=== PATIENT | male | born 1945 | race Caucasian/White ===

== ENCOUNTER 2017-03-19 17:04 | Inpatient (IN) | payer OTHER ==
[~2017-03-19] VITALS: Ht 160 cm; Wt 55.8 kg
--- NOTE | 2017-03-19 17:10 | NUR ---
CALLED FOR TRIAGE, PT IN RESTROOM ATTEMPTING TO HAVE A BM
[2017-03-19 17:25] VITALS: BP_SYST 150
--- NOTE | 2017-03-19 17:25 | NUR ---
Patient triaged and placed in waiting room. VSS and patient appears in no acute distress at this time. Accompanied by , awaiting available bed, and MD notified of need for MSE.
[2017-03-19 17:51] LABS: BASOPHILS % (AUTO) 0.4 % (0.0-2.0); EOSINOPHILS # (AUTO) 0.1 K/uL (0.0-0.4); EOSINOPHILS % (AUTO) 1.4 % (0.0-4.0); HEMATOCRIT 34.8 % (36-54); HEMOGLOBIN 12.2 g/dL (14.0-18.0); LYMPHOCYTES % (AUTO) 13.8 % (20.5-51.5); MEAN CORPUSCULAR HEMOGLOBIN 36 pg (27-31); MEAN CORPUSCULAR HGB CONC 35 % (32-36); MEAN CORPUSCULAR VOLUME 104 fL (79.0-98.0); MONOCYTES # (AUTO) 0.6 K/uL (0.0-1.0); MONOCYTES % (AUTO) 7.9 % (1.7-9.3); NEUTROPHILS # (AUTO) 5.7 K/uL (1.8-7.7); NEUTROPHILS % (AUTO) 76.5 % (40.0-70.0); PLATELET COUNT (AUTO) 281 K/uL (130-430); RED BLOOD CELL COUNT(AUTO) 3.36 MIL/uL (4.2-6.2); RED CELL DISTRIBUTION WIDTH 12.7 % (9.0-15.0); WHITE BLOOD COUNT (AUTO) 7.4 K/uL (4.8-10.8)
[2017-03-19 18:01] LABS: ANION GAP 6 (5-15); CALCIUM 9.2 mg/dL (8.4-11.0); CREATININE 0.89 mg/dL (0.55-1.30); GLUCOSE 110 mg/dL (70-99); POTASSIUM 4.1 mmol/L (3.5-5.1); UREA NITROGEN, BLOOD 9 mg/dL (8-21)
[2017-03-19 18:05] LABS: ALANINE AMINOTRANSFERASE 15 U/L (12-78); ALBUMIN 3.8 g/dL (3.4-4.8); ASPARTATE AMINOTRANSFERASE 16 U/L (10-37); LIPASE 184 U/L (73-393); TOTAL BILIRUBIN 0.4 mg/dL (0.0-1.0); TOTAL PROTEIN, SERUM 7.7 g/dL (6.4-8.3)
[2017-03-19 18:10] LABS: CHLORIDE 83 mmol/L (98-107); SODIUM SERUM 116 mmol/L (136-145)
[2017-03-19 18:15] LABS: PROTHROMBIN TIME 10.5 SECS (9.5-12.5)
[2017-03-19] MEDS ORDERED: NACL 0.9% 1,000 ML IV ONE (18:15)
--- NOTE | 2017-03-19 18:30 | NUR ---
Patient to ER bed 02 to gown for evaluation. Side rails up.
--- NOTE | 2017-03-19 18:32 | NUR ---
Dr Nair at bedside examining patient
--- NOTE | 2017-03-19 18:32 | NUR ---
'Pt brought by self, A&Ox4, pt c/o constipation, states large BM 10 days ago and small BM yesterday, abd pain 3/10, skin pink and warm, cap refill <3, ambulatory, denies bleeding, VS WNL.
[2017-03-19] MEDS ORDERED: LOSA100T11 PO (19:37)
[2017-03-19] MEDS ORDERED: HYDR12.55 PO (19:37)
--- NOTE | 2017-03-19 19:38 | NUR ---
Patient unable to provide urine "states i need more time, i am trying" Refuses I&O catheter at this time.
--- NOTE | 2017-03-19 19:38 | NUR ---
Medication reconciliation completed with information provided by - pill bottles from patient. Any prior medication reconciliation on file was reviewed and corrected.
--- NOTE | 2017-03-19 19:45 | NUR ---
Patient does not meet SEPSIS protocol.
--- NOTE | 2017-03-19 20:55 | NUR ---
Patient will be admitted to care of Dr Ulrich. Admitted to MS unit. Will go to room 135. Belongings list completed. Summary report printed. Report will be given at bedside.
[2017-03-19] MEDS ORDERED: ACETAMINOPHEN 325 MG TABLET PO PRN (21:00)
[2017-03-19] MEDS ORDERED: ALBUTEROL SULFATE 0.083% 2.5 MG/3 ML VIAL.NEB INH PRN (21:00)
[2017-03-19] MEDS ORDERED: BISACODYL 5 MG TABLET.DR (DULCOLAX) PO ONE (21:00)
[2017-03-19] MEDS ORDERED: cloNIDine HCL 0.1 MG TABLET PO PRN (21:15)
--- NOTE | 2017-03-19 21:16 | NUR ---
Admission Note Received patient from ER with diagnosis of HYPONATREMIA, COLITIS. Initial Plan of Care discussed-patient verbalized understanding. Family at bedside. Oriented to room, call light, pain management and safety.
--- NOTE | 2017-03-19 21:16 | NUR ---
initial nursing notes: Patient is awake. Patient has IV fluid infusing on the left forearm IV access. Patient denies of having pain.
--- NOTE | 2017-03-19 23:16 | NUR ---
nursing rounds: Patient asleep in bed. Patient has no shortness of breath.
[2017-03-20] MEDS: NACL 0.9% 1,000 ML IV SCH ×3 (00:17→20:00)
[2017-03-20 00:51] LABS: BILIRUBIN,URINE NEGATIVE (NEGATIVE); BLOOD, URINE NEGATIVE (NEGATIVE); CLARITY/URINE CLEAR (CLEAR); COLOR,URINE YELLOW (YELLOW); GLUCOSE,URINE NEGATIVE (NEGATIVE); KETONES,URINE NEGATIVE (NEGATIVE); LEUKOCYTE ESTERASE ,URINE NEGATIVE (NEGATIVE); NITRITE, URINE NEGATIVE (NEGATIVE); PROTEIN URINE NEGATIVE (NEGATIVE); UROBILINOGEN,URINE 0.2 (0.2-1.0)
--- NOTE | 2017-03-20 01:15 | NUR ---
nursing rounds: Patient asleep. Kept siderails up X 3 and bed alarm on for patient's safety.
--- NOTE | 2017-03-20 03:15 | NUR ---
nursing rounds: Patient uses urinal. Patient voided clear yellow urine output.
[2017-03-20 04:00] VITALS: BP_SYST 100
--- NOTE | 2017-03-20 05:15 | NUR ---
nursing rounds: Patient calmly resting in bed. Call light within patient's reach.
[2017-03-20 07:37] LABS: ANION GAP 7 (5-15); CALCIUM 8.8 mg/dL (8.4-11.0); CHLORIDE 90 mmol/L (98-107); CREATININE 0.72 mg/dL (0.55-1.30); GLUCOSE 91 mg/dL (70-99); POTASSIUM 3.8 mmol/L (3.5-5.1); SODIUM SERUM 124 mmol/L (136-145); UREA NITROGEN, BLOOD 6 mg/dL (8-21)
[2017-03-20 07:40] LABS: BASOPHILS % (AUTO) 0.3 % (0.0-2.0); EOSINOPHILS # (AUTO) 0.1 K/uL (0.0-0.4); EOSINOPHILS % (AUTO) 1.8 % (0.0-4.0); HEMATOCRIT 34.4 % (36-54); HEMOGLOBIN 11.7 g/dL (14.0-18.0); LYMPHOCYTES % (AUTO) 16.5 % (20.5-51.5); MEAN CORPUSCULAR HEMOGLOBIN 37 pg (27-31); MEAN CORPUSCULAR HGB CONC 34 % (32-36); MEAN CORPUSCULAR VOLUME 107 fL (79.0-98.0); MONOCYTES # (AUTO) 0.7 K/uL (0.0-1.0); MONOCYTES % (AUTO) 11.7 % (1.7-9.3); NEUTROPHILS # (AUTO) 4.3 K/uL (1.8-7.7); NEUTROPHILS % (AUTO) 69.7 % (40.0-70.0); PLATELET COUNT (AUTO) 242 K/uL (130-430); RED BLOOD CELL COUNT(AUTO) 3.21 MIL/uL (4.2-6.2); RED CELL DISTRIBUTION WIDTH 12.8 % (9.0-15.0); WHITE BLOOD COUNT (AUTO) 6.1 K/uL (4.8-10.8)
--- NOTE | 2017-03-20 07:44 | NUR ---
closing nursing notes: Patient is awake, alert and oriented X 4. Patient is in no acute respiratory distress. No episodes of fall and no injuries throughout the welder 2nd shift. Provided nursing report to incoming morning shift nurses, MEL Nunes, at patient's bedside.
[2017-03-20 08:00] VITALS: BP_SYST 122
--- NOTE | 2017-03-20 08:00 | NUR ---
INITIAL NOTE PT AWAKE, ALERT AND ORIENTED X4, NO S/S OF DISTRESS OR PAIN, VSS, FAMILY AT BEDSIDE, IV TO LFA PATENT AND INFUSING PRESCRIBED FLUIDS AT ORDERED RATE, NO S/S OF INFILTRATION NOTED, PLAN OF CARE DISCUSSED WITH PATIENT, PATIENT VERBALIZED UNDERSTANDING, PT REORIENTED TO USE OF CALL LIGHT AND IT IS PLACED WITHIN REACH, SAFETY MEASURES IN PLACE, WILL FOLLOW UP
[2017-03-20] MEDS: ENOXAPARIN SODIUM 40 MG/0.4 ML SYRINGE SUBCUT SCH (09:12)
[2017-03-20] MEDS: LOSARTAN POTASSIUM 50 MG TABLET (COZAAR) PO SCH (09:12)
[2017-03-20] MEDS ORDERED: BISACODYL 5 MG TABLET.DR (DULCOLAX) PO ONE (09:30)
--- NOTE | 2017-03-20 09:38 | NUR ---
Nutrition Update Quinten Scale 18 noted. Pt admitted for severe hyponatremia, ileus. Diet: regular BMI: 21.8 kg/m2 RD to follow per nutrition care standards.
--- NOTE | 2017-03-20 10:25 | NUR ---
DR ALMONTE MAKING ROUNDS FOR DR SHAHID, NEW ORDER RECEIVED, NOTED AND CARRIED OUT. PT MADE AWARE, VERBALIZED UNDERSTANDING OF PLAN OF CARE
[2017-03-20] MEDS ORDERED: MAGNESIUM SULFATE 50 ML IV ONE (10:30)
--- NOTE | 2017-03-20 11:50 | NUR ---
ROUNDS PT SITTING UP IN BED, FAMILY AT BEDSIDE, PT STATES HE HAS NO NEEDS AT THIS TIME, WILL CONTINUE TO MONITOR
[2017-03-20 12:34] VITALS: BP_SYST 98
--- NOTE | 2017-03-20 13:44 | NUR ---
PERFORMED TAPE WATER ENEMA PER ORDER UNTIL RAN CLEAR. PT TOLERATED WELL, SAFETY MEASURES IN PLACE, CALL LIGHT WITHIN REACH, BED IN LOW POSITION AND LOCKED
--- NOTE | 2017-03-20 16:00 | NUR ---
ROUNDS PT SITTING IN BEDSIDE CHAIR, FAMILY AT BEDSIDE, NO S/S OF DISTRESS OR COMPLAINT OF PAIN, PT STATES HE HAS NO NEEDS AT THIS TIME, WILL CONTINUE TO MONITOR
[2017-03-20 16:16] VITALS: BP_SYST 116
[2017-03-20 18:28] VITALS: BP_SYST 116
--- NOTE | 2017-03-20 19:00 | NUR ---
CLOSING NOTE PT RESTING, EASY TO AROUSE, ALERT AND ORIENTED X4, NO S/S OF DISTRESS OR OCMPLAINT OF PAIN, VSS, IV TO LFA INTACT AND INFUSING FLUIDS AT ORDERED RATE, NO S/S OF INFILTRATION NOTED, ALL NEEDS ATTENDED TO THROUGH OUT SHIFT, SAFETY MEASURES IN PLACE, CALL LIGHT WITHIN REACH, BED IN LOW POSITION AND LOCKED, WILL GIVE REPORT TO FOLLOWING SHIFT.
--- NOTE | 2017-03-20 20:00 | NUR ---
AAOX4. IN NO APPARENT DISTRESS. VSS. DENIES PAIN. ON ROOM AIR. POX 97%. BREATH SOUNDS CLEAR. BOWEL SOUNDS (+). PULSES PALPABLE. SKIN W/D. COLOR SATISFACTORY. HOB UP TO COMFORT. SIDE RAILS UPX2.
--- NOTE | 2017-03-21 | NUR ---
SLEPT INTERMITTENTLY. BRP.
[2017-03-21 02:12] VITALS: BP_SYST 113
[2017-03-21 03:55] VITALS: BP_SYST 115
--- NOTE | 2017-03-21 04:00 | NUR ---
SLEPT FOR LONG PERIODS OF TIME. NO COMPLAINTS OFFERED AT THIS TIME.
[2017-03-21] MEDS: NACL 0.9% 1,000 ML IV SCH (04:43)
--- NOTE | 2017-03-21 06:00 | NUR ---
SLEPT WELL MOST OF NIGHT. RESTFUL AND UNEVENTFUL NOC.
[2017-03-21 07:35] LABS: BASOPHILS % (AUTO) 0.1 % (0.0-2.0); EOSINOPHILS # (AUTO) 0.1 K/uL (0.0-0.4); HEMATOCRIT 33.1 % (36-54); HEMOGLOBIN 11.3 g/dL (14.0-18.0); LYMPHOCYTES # (AUTO) 1.1 K/uL (1.0-5.5); LYMPHOCYTES % (AUTO) 15.1 % (20.5-51.5); MEAN CORPUSCULAR HEMOGLOBIN 36 pg (27-31); MEAN CORPUSCULAR HGB CONC 34 % (32-36); MEAN CORPUSCULAR VOLUME 106 fL (79.0-98.0); MONOCYTES # (AUTO) 0.7 K/uL (0.0-1.0); MONOCYTES % (AUTO) 9.8 % (1.7-9.3); NEUTROPHILS # (AUTO) 5.1 K/uL (1.8-7.7); PLATELET COUNT (AUTO) 260 K/uL (130-430); RED BLOOD CELL COUNT(AUTO) 3.13 MIL/uL (4.2-6.2); RED CELL DISTRIBUTION WIDTH 12.7 % (9.0-15.0)
[2017-03-21 07:47] VITALS: BP_SYST 125
--- NOTE | 2017-03-21 08:00 | NUR ---
AM NOTES PT IN BED, AWAKE, ALERT AND ORIENTED. DENIES ANY PAIN OR DISCOMFORT. NO SHORTNESS OF BREATH. IVF INFUSING WELL. ON ROOM AIR. USES URINAL. CALL LIGHT IN REACH. ENC. TO CALL FOR HELP NEEDED. WILL MONITOR.
[2017-03-21 08:02] LABS: ANION GAP 6 (5-15); CALCIUM 8.4 mg/dL (8.4-11.0); CHLORIDE 94 mmol/L (98-107); CREATININE 0.65 mg/dL (0.55-1.30); GLUCOSE 85 mg/dL (70-99); SODIUM SERUM 125 mmol/L (136-145); UREA NITROGEN, BLOOD 6 mg/dL (8-21)
[2017-03-21] MEDS: LOSARTAN POTASSIUM 50 MG TABLET (COZAAR) PO SCH (09:18)
[2017-03-21] MEDS: ENOXAPARIN SODIUM 40 MG/0.4 ML SYRINGE SUBCUT SCH (09:18)
--- NOTE | 2017-03-21 10:16 | NUR ---
Faxed DC order Home to [facility] at [phone] Filed fax confirmation in binder.
--- NOTE | 2017-03-21 11:00 | NUR ---
discharge d/c pt home. family at bedside. able to ambulate with steady gait. denies any pain or discomfort. d/c instruction given and discussed with pt and . verbalize understanding. instructed for follow with primary care doctor. ivl and arm band removed.
[2017-03-21 11:01] VITALS: BP_SYST 122
[2017-03-21 11:30] VITALS: BP_SYST 128
[2017-03-21 14:39] VITALS: BP_SYST 125
--- NOTE | 2017-03-21 15:28 | NUR ---
PHYSICAL THERAPY CO-SIGN The Physical Therapy Progress Notes documented by Media Operator have been reviewed. Pt IS SHOWING PROGRESS WITH POC; CONT PER TX PLAN Reviewed/Co-Signed by: Heidy Ayon PT Documentation Done by: BEN LERMA PLATE AND FRAME FILTER OPERATOR Addendum: 03/21/17 at 1529 by Heidy Ayon PT Amended: Links added.
--- NOTE | 2017-03-22 11:28 | NUR ---
Discharge Follow Up Phone Call WELDING EQUIPMENT SALES REPRESENTATIVE phoned patient, , and spoke with patient's , Taniya. Taniya stated patient was doing fine. She had been worried that patient was not urinating, but patient urinated this morning. She stated patient feels okay and is staying hydrated. She was reminded to call the PCP or take the patient to the ED if patient's condition worsens. Patient has stopped hydrochlorothiazide, as directed. He will attend his follow up appointment with Dr Ravi on March 27, as scheduled. There are no other questions or concerns.
== END 2017-03-21 11:00 | disposition home or self-care (01) | DRG 389 ==
LOC: SED 17:04 → EDBD 17:04 → SMU 20:50
PROVIDERS: ADMIT Internal Medicine; ATTEND Internal Medicine
DX: K56.7 Ileus, unspecified (principal); E87.1 Hypo-osmolality and hyponatremia; I10 Essential (primary) hypertension; K59.00 Constipation, unspecified; Z96.659 Presence of unspecified artificial knee joint; T50.2X5A Adverse effect of carbonic-anhydrase inhibitors, benzothiadiazides and other diuretics, initial encounter; Z85.46 Personal history of malignant neoplasm of prostate; Z90.49 Acquired absence of other specified parts of digestive tract; Z90.79 Acquired absence of other genital organ(s); Z88.5 Allergy status to narcotic agent
CPT/HCPCS: 36415; 71010; 80048; 80053; 81003; 83690-TC; 83735-TC; 83930-TC; 83935-TC; 84295-TC; 84484; 85025; 85610-TC; 85730-TC; 93005; 96360; 97110-GP; 97116-GP; 97530-GP; 99285; J1650; J3475; J7030

== ENCOUNTER 2017-03-26 17:34 | Inpatient (IN) | payer OTHER ==
[~2017-03-26] VITALS: Ht 160 cm; Wt 57.2 kg
[~2017-03-26 17:34] MED LIST: HYDR12.55 PO; LOSA100T11 PO
--- NOTE | 2017-03-26 17:34 | NUR ---
BROUGHT BACK TO BED #7 VIA WHEELCHAIR, PLACED IN BED #8 AND TRIAGED. REPORT GIVEN TO WINSTON
[2017-03-26 17:35] VITALS: BP 114/64; PULSE 75; RESP 18; TEMP 98.2; O2SAT 97
--- NOTE | 2017-03-26 17:55 | NUR ---
Patient is stable with at bedside. Patient states that he has been having difficutly urinating today. He states he only urinated and had a bowel movement once today. Patient states that he is having pain to the lower left abdomen. Pain scale 9/10. Patient states it feels like pressure. No other complaints or injuries noted or per patient. Addendum: 03/26/17 at 1759 by [email or web address] Abdomen is soft and round.
--- NOTE | 2017-03-26 18:11 | NUR ---
ER at bedside examining patient.
[2017-03-26 18:34] LABS: BASOPHILS % (AUTO) 0.6 % (0.0-2.0); EOSINOPHILS # (AUTO) 0.1 K/uL (0.0-0.4); HEMATOCRIT 32.9 % (36-54); HEMOGLOBIN 11.6 g/dL (14.0-18.0); LYMPHOCYTES # (AUTO) 1.1 K/uL (1.0-5.5); LYMPHOCYTES % (AUTO) 18.9 % (20.5-51.5); MEAN CORPUSCULAR HEMOGLOBIN 37 pg (27-31); MEAN CORPUSCULAR HGB CONC 35 % (32-36); MEAN CORPUSCULAR VOLUME 106 fL (79.0-98.0); MONOCYTES # (AUTO) 0.7 K/uL (0.0-1.0); MONOCYTES % (AUTO) 12.3 % (1.7-9.3); NEUTROPHILS # (AUTO) 4.1 K/uL (1.8-7.7); NEUTROPHILS % (AUTO) 66.2 % (40.0-70.0); PLATELET COUNT (AUTO) 294 K/uL (130-430); RED CELL DISTRIBUTION WIDTH 12.8 % (9.0-15.0)
[2017-03-26 18:41] LABS: ANION GAP 3 (5-15); CALCIUM 9.2 mg/dL (8.4-11.0); CHLORIDE 88 mmol/L (98-107); CREATININE 1.03 mg/dL (0.55-1.30); GLUCOSE 103 mg/dL (70-99); POTASSIUM 4.7 mmol/L (3.5-5.1); UREA NITROGEN, BLOOD 10 mg/dL (8-21)
[2017-03-26 18:43] LABS: PROTHROMBIN TIME 10.7 SECS (9.5-12.5)
[2017-03-26 18:45] LABS: ALANINE AMINOTRANSFERASE 16 U/L (12-78); ALBUMIN 3.6 g/dL (3.4-4.8); ASPARTATE AMINOTRANSFERASE 13 U/L (10-37); LIPASE 140 U/L (73-393); TOTAL BILIRUBIN 0.4 mg/dL (0.0-1.0); TOTAL PROTEIN, SERUM 7.2 g/dL (6.4-8.3)
[2017-03-26 18:47] LABS: SODIUM SERUM 118 mmol/L (136-145)
[2017-03-26 19:13] LABS: BILIRUBIN,URINE NEGATIVE (NEGATIVE); BLOOD, URINE NEGATIVE (NEGATIVE); CLARITY/URINE CLEAR (CLEAR); COLOR,URINE YELLOW (YELLOW); GLUCOSE,URINE NEGATIVE (NEGATIVE); KETONES,URINE 1+ (NEGATIVE); LEUKOCYTE ESTERASE ,URINE NEGATIVE (NEGATIVE); NITRITE, URINE NEGATIVE (NEGATIVE); PH,URINE 6.5 (5.0-8.0); PROTEIN URINE NEGATIVE (NEGATIVE); UROBILINOGEN,URINE 0.2 (0.2-1.0)
[2017-03-26] MEDS ORDERED: NS 500 ML IV ONE (19:15)
[2017-03-26] MEDS ORDERED: NACL 0.9% 1,000 ML IV ONE (19:45)
--- NOTE | 2017-03-26 20:16 | NUR ---
Patient will be admitted to care of Dr. Martin. Admitted to Telemetry unit. Will go to room 101 A. Belongings list completed. Summary report printed. Report given at bedside to MEL Mcdonough.
--- NOTE | 2017-03-26 20:16 | NUR ---
ADMISSION NOTE Received patient from ER via niesha, received report from Lisa LEAL. Patient admitted with diagnosis of hyponatremia. Patient oriented to hospital routine, call light, toileting and safety-patient verbalized understanding.
[2017-03-26 20:25] VITALS: BP 125/66; PULSE 64; RESP 18; TEMP 97.6; O2SAT 97
--- NOTE | 2017-03-26 20:45 | NUR ---
OPENING NOTES PATIENT IS A/OX4. NO SIGNS OF DISTRESS. BREATHING IS NON LABORED. VITAL SIGNS ARE STABLE. IV IS PATENT. PATIENT INSTRUCTED TO CALL FOR ASSISTANCE. PATIENT VERBALIZED UNDERSTANDING. PATIENT REFUSED BED ALARM. SAFETY MEASURES ARE IN PLACE. WILL CONTINUE TO MONITOR.
[2017-03-26 21:00] VITALS: BP 125/66; PULSE 64; RESP 18; TEMP 97.6; O2SAT 97
--- NOTE | 2017-03-26 21:15 | NUR ---
URINE OUTPUT PATIENT VOIDED 350CC OF CLEAR, YELLOW URINE.
[2017-03-26] MEDS ORDERED: MILK OF MAGNESIA 30 ML UDC PO PRN (21:45)
--- NOTE | 2017-03-26 22:48 | NUR ---
ROUNDS PATIENT IS IN BED SLEEPING. NO SIGNS OF DISTRESS. BREATHING IS NON LABORED. IS AT BED RESTING IN CHAIR. PATIENT REFUSED BED ALARM. WILL CONTINUE TO MONITOR.
[2017-03-26 23:18] LABS: ANION GAP 3 (5-15); CALCIUM 8.7 mg/dL (8.4-11.0); CHLORIDE 91 mmol/L (98-107); CREATININE 0.81 mg/dL (0.55-1.30); GLUCOSE 97 mg/dL (70-99); POTASSIUM 4.1 mmol/L (3.5-5.1); SODIUM SERUM 120 mmol/L (136-145); UREA NITROGEN, BLOOD 9 mg/dL (8-21)
--- NOTE | 2017-03-27 01:10 | NUR ---
ROUNDS PATIENT IS IN BED SLEEPING. NO SIGNS OF DISTRESS. BREATHING IS NON LABORED. CALL LIGHT IS WITHIN REACH. SAFETY MEASURES ARE IN PLACE. IS AT BEDSIDE SLEEPING IN A CHAIR. WILL CONTINUE TO MONITOR.
[2017-03-27 03:17] VITALS: BP 110/55; PULSE 64; RESP 18; TEMP 97.7; O2SAT 96
--- NOTE | 2017-03-27 03:28 | NUR ---
ROUNDS PATIENT IS IN BED SLEEPING COMFORTABLY. BREATHING IS NON LABORED. NO SIGNS OF DISTRESS. IS SLEEPING IN A CHAIR AT BEDSIDE. CALL LIGHT IS WITHIN REACH. SAFETY MEASURES ARE IN PLACE. WILL CONTINUE TO MONITOR.
--- NOTE | 2017-03-27 06:52 | NUR ---
CLOSING NOTES PATIENT IS IN BED RESTING COMFORTABLY. NO SIGNS OF DISTRESS. BREATHING IS NON LABORED. IV IS PATENT. PATIENT HAS NO COMPLAINTS PAIN. WILL ENDORSE ALL CARE TO THE MORNING NURSE.
[2017-03-27 07:29] LABS: ANION GAP 6 (5-15); CALCIUM 8.6 mg/dL (8.4-11.0); CHLORIDE 91 mmol/L (98-107); CREATININE 0.74 mg/dL (0.55-1.30); GLUCOSE 94 mg/dL (70-99); POTASSIUM 4.1 mmol/L (3.5-5.1); SODIUM SERUM 122 mmol/L (136-145); UREA NITROGEN, BLOOD 6 mg/dL (8-21)
[2017-03-27 07:39] LABS: BASOPHILS % (AUTO) 0.7 % (0.0-2.0); EOSINOPHILS # (AUTO) 0.2 K/uL (0.0-0.4); EOSINOPHILS % (AUTO) 3.5 % (0.0-4.0); HEMATOCRIT 34.3 % (36-54); HEMOGLOBIN 11.3 g/dL (14.0-18.0); LYMPHOCYTES # (AUTO) 1.2 K/uL (1.0-5.5); LYMPHOCYTES % (AUTO) 24.1 % (20.5-51.5); MEAN CORPUSCULAR HEMOGLOBIN 35 pg (27-31); MEAN CORPUSCULAR HGB CONC 33 % (32-36); MEAN CORPUSCULAR VOLUME 106 fL (79.0-98.0); MONOCYTES # (AUTO) 0.7 K/uL (0.0-1.0); MONOCYTES % (AUTO) 14.7 % (1.7-9.3); NEUTROPHILS # (AUTO) 2.8 K/uL (1.8-7.7); PLATELET COUNT (AUTO) 303 K/uL (130-430); RED BLOOD CELL COUNT(AUTO) 3.23 MIL/uL (4.2-6.2); RED CELL DISTRIBUTION WIDTH 13.1 % (9.0-15.0)
[2017-03-27 08:07] VITALS: BP 126/68; PULSE 62; RESP 18; TEMP 97.7; O2SAT 98
[2017-03-27 08:13] LABS: WHITE BLOOD COUNT (AUTO) 4.9 K/uL (4.8-10.8)
--- NOTE | 2017-03-27 08:15 | NUR ---
PATIENT ROUNDS. DENIES ABDOMEN PAIN. SAYS HE FEELS IMPROVED AFTER A BLOOD PRESSURE MEDICATION WAS DISCONTINUED.
[2017-03-27] MEDS: LOSARTAN POTASSIUM 50 MG TABLET (COZAAR) PO SCH (09:23)
[2017-03-27] MEDS: ENOXAPARIN SODIUM 30 MG/0.3 ML SYRINGE SUBCUT SCH (09:23)
--- NOTE | 2017-03-27 11:28 | NUR ---
PATIENT REQUEST TO RETURN TO BED. SEARCH FOR PATIENT BELONGING COMPLETE. [facility], EMERGENCY SERVICE AND DIETARY NOTIFIED. PATIENT BELIEVES ITEM WAS UNDER PILLOW. PATIENT REQUEST TO RETURN TO BED AFTER SITTING IN CHAIR. TOLERATED BREAKFAST WELL.
--- NOTE | 2017-03-27 11:59 | NUR ---
CONSULT RENAL HYPONATREMIA DR UNDERWOOD [phone] S/W MAGGI EXCHANGE @ 1200
[2017-03-27 12:20] VITALS: BP 122/65; PULSE 56; RESP 18; TEMP 97.4; O2SAT 99
--- NOTE | 2017-03-27 12:54 | NUR ---
Doctor Chapman call to verify and order additional labwork for rounds.
[2017-03-27 13:25] LABS: THYROID STIMULATING HORMONE 1.5 uIu/mL (0.34-4.82)
--- NOTE | 2017-03-27 15:31 | NUR ---
PATIENT ROUNDS. SPOUSE PRESENT HOPEFUL DENTURES WILL BE LOCATED. SAYS SPOUSE WAS INSTRUCTED NOT TO TAKE THEM OUT UNLESS HE HANDED THEM TO HER. PROVIDED LISTENING. CALL PER LATEX CASTER TO [employer] [employer] [employer] TO ASSIST LOOKING FOR ITEM.
[2017-03-27 16:33] VITALS: BP 131/69; PULSE 62; RESP 16; TEMP 97.9; O2SAT 99
--- NOTE | 2017-03-27 16:49 | NUR ---
DOCTOR UNDERWOOD ROUNDS TO PATIENT. ELEAZAR AT [facility] TEXT THROUGH TO DOCTOR SUZY REQUEST FROM DOCTOR UNDERWOOD TO SPEAK WITH PROVIDER.
[2017-03-27] MEDS ORDERED: SODIUM CHLORIDE 3% *HI-ALERT* 500 ML IV SCH (17:00)
[2017-03-27] MEDS ORDERED: MAGNESIUM SULFATE 3 GM in D5W 100 ML IV ONE (17:00)
[2017-03-27 19:50] VITALS: BP 105/60; PULSE 67; RESP 16; TEMP 98.7; O2SAT 97
--- NOTE | 2017-03-27 19:52 | NUR ---
OPENING NOTES PATIENT IS A/OX4. PATIENT IS IN BED RESTING COMFORTABLY. NO SIGNS OF DISTRESS. BREATHING IS NON LABORED. VITAL SIGNS ARE STABLE. IV IS PATENT. PATIENT HAS NO COMPLAINT OF PAIN. CALL LIGHT IS WITHIN REACH. SAFETY MEASURES ARE IN PLACE. WILL CONTINUE TO MONITOR.
--- NOTE | 2017-03-27 22:04 | NUR ---
ROUNDS PATIENT IS IN BED RESTING COMFORTABLY. NO SIGNS OF DISTRESS. BREATHING IS NON LABORED. PATIENT INSTRUCTED TO CALL FOR ASSISTANCE. PATIENT VERBALIZED UNDERSTANDING. CALL LIGHT IS WITHIN REACH. BED ALARM IS ON. WILL CONTINUE TO MONITOR.
[2017-03-27 23:50] VITALS: BP 102/47; PULSE 62; RESP 17; TEMP 96.6; O2SAT 95
--- NOTE | 2017-03-28 00:48 | NUR ---
ROUNDS PATIENT IS IN BED SLEEPING. NO SIGNS OF DISTRESS. BREATHING IS NON LABORED. BED ALARM IS ON.CALL LIGHT IS WITHIN REACH. WILL CONTINUE TO MONITOR.
--- NOTE | 2017-03-28 02:58 | NUR ---
ROUNDS PATIENT IS IN BED SLEEPING. BREATHING IS NON LABORED. NO SIGNS OF DISTRESS. CALL LIGHT IS WITHIN REACH. BED ALARM IS ON. WILL CONTINUE TO MONITOR.
[2017-03-28 04:02] VITALS: BP 112/66; PULSE 66; RESP 16; TEMP 96.8; O2SAT 95
--- NOTE | 2017-03-28 04:59 | NUR ---
ROUNDS PATIENT IS IN BED SLEEPING COMFORTABLY. NO SIGNS OF DISTRESS. BREATHING IS NON LABORED. SAFETY MEASURES ARE IN PLACE. BED ALARM IS ON. CALL LIGHT IS WITHIN REACH. WILL CONTINUE TO MONITOR.
--- NOTE | 2017-03-28 06:30 | NUR ---
CLOSING NOTES PATIENT IS IN BED RESTING COMFORTABLY. NO SIGNS OF DISTRESS. BREATHING IS NON LABORED. IV IS PATENT. CALL LIGHT IS WITHIN REACH. SAFETY MEASURES ARE IN PLACE. WILL ENDORSE ALL CARE TO THE MORNING NURSE.
[2017-03-28 07:12] LABS: BASOPHILS % (AUTO) 0.2 % (0.0-2.0); EOSINOPHILS # (AUTO) 0.3 K/uL (0.0-0.4); EOSINOPHILS % (AUTO) 4.4 % (0.0-4.0); HEMOGLOBIN 11.9 g/dL (14.0-18.0); LYMPHOCYTES # (AUTO) 1.2 K/uL (1.0-5.5); LYMPHOCYTES % (AUTO) 21.2 % (20.5-51.5); MEAN CORPUSCULAR HEMOGLOBIN 36 pg (27-31); MEAN CORPUSCULAR HGB CONC 35 % (32-36); MEAN CORPUSCULAR VOLUME 104 fL (79.0-98.0); MONOCYTES # (AUTO) 0.7 K/uL (0.0-1.0); NEUTROPHILS # (AUTO) 3.5 K/uL (1.8-7.7); NEUTROPHILS % (AUTO) 62.2 % (40.0-70.0); PLATELET COUNT (AUTO) 301 K/uL (130-430); RED BLOOD CELL COUNT(AUTO) 3.26 MIL/uL (4.2-6.2); RED CELL DISTRIBUTION WIDTH 12.7 % (9.0-15.0); WHITE BLOOD COUNT (AUTO) 5.8 K/uL (4.8-10.8)
[2017-03-28 07:25] LABS: ANION GAP 7 (5-15); CALCIUM 8.7 mg/dL (8.4-11.0); CHLORIDE 93 mmol/L (98-107); CREATININE 0.73 mg/dL (0.55-1.30); GLUCOSE 88 mg/dL (70-99); POTASSIUM 4.3 mmol/L (3.5-5.1); SODIUM SERUM 125 mmol/L (136-145); UREA NITROGEN, BLOOD 7 mg/dL (8-21)
--- NOTE | 2017-03-28 07:30 | NUR ---
AM Rounds: Pt laying flat in bed and sleeping. Breathing even and unlabored on room air. No acute signs of distress noted at this time. IV intact to LUE infusing ordered IV fluids NS 3%. Call light in reach. Continue to monitor.
[2017-03-28 08:17] VITALS: BP 130/67; PULSE 88; RESP 16; TEMP 97.1; O2SAT 97
--- NOTE | 2017-03-28 08:20 | NUR ---
IV fluids change Rate per MD: Dr. Chapman aware of AM sodium labs. New orders noted to change NS 3% rate to 35 mL/hr. Pt sitting up in bed and eating at this time.
[2017-03-28] MEDS: ENOXAPARIN SODIUM 30 MG/0.3 ML SYRINGE SUBCUT SCH (09:02)
[2017-03-28] MEDS: LOSARTAN POTASSIUM 50 MG TABLET (COZAAR) PO SCH (09:02)
--- NOTE | 2017-03-28 10:47 | NUR ---
Here: Dr. Cameron here, aware that Dr. Chapman called this morning and that new BMP was ordered for this AM at 1100. Per Dr. Cameron, ok to proceed with discharge and he is aware of patient's AM sodium level.
--- NOTE | 2017-03-28 11:17 | NUR ---
Rounds/ Lab Draw: Pt sitting semi-fowlers in bed. No acute signs of distress noted at this time. IV intact to RUE with no redness or swelling noted to site. Fall precautions in place. Call light in reach. Continue to monitor pt closely.
[2017-03-28 11:34] LABS: ANION GAP 4 (5-15); CALCIUM 8.6 mg/dL (8.4-11.0); CHLORIDE 93 mmol/L (98-107); CREATININE 0.75 mg/dL (0.55-1.30); GLUCOSE 99 mg/dL (70-99); POTASSIUM 4.2 mmol/L (3.5-5.1); SODIUM SERUM 124 mmol/L (136-145); UREA NITROGEN, BLOOD 7 mg/dL (8-21)
[2017-03-28 11:54] VITALS: Ht 160 cm; Wt 57.2 kg
[2017-03-28 11:55] VITALS: BP 115/59; PULSE 64; RESP 16; TEMP 97.4; O2SAT 97
[2017-03-28 12:00] VITALS: BP 115/59; PULSE 64; RESP 16; TEMP 97.4; O2SAT 97
--- NOTE | 2017-03-28 13:00 | NUR ---
D/C Patient Patient given medication reconciliation form and D/C instructions. Exit Care provided. Patient verbalized understanding. MD discussed with patient the results and treatment provided. Ambulatory with steady gait for discharge to home. Patient in stable condition, ID band removed. IV catheter removed, intact and dressing applied, no active bleeding. no Rx given. Patient educated on pain management. All belongings sent with patient. Pt verbalized understanding of need to follow up with MD in 1 week.
--- NOTE | 2017-03-28 14:53 | NUR ---
PHYSICAL THERAPY CO-SIGN The Physical Therapy Progress Notes documented by Certified First Assistant have been reviewed. Reviewed/Co-Signed by: Александр Hall PT Documentation Done by: Sly Cardozo ORTHO RN Pt has increased gait distance today with rehab services.
--- NOTE | 2017-03-28 14:55 | NUR ---
PHYSICAL THERAPY CO-SIGN The Physical Therapy Progress Notes documented by Meter Setter have been reviewed. Reviewed/Co-Signed by: Александр Hall PT Documentation Done by: Sly Cardozo SITE MANAGER Pt has increased gait distance with today's skilled rehab session, progressing towards goals. Addendum: 03/28/17 at 1456 by Александр Hall PT Amended: Links added.
--- NOTE | 2017-03-29 11:18 | NUR ---
Discharge Follow Up Phone Call HEALTH CARE SANITARY TECHNICIAN phoned patient, , and spoke with patient's , Taniya. Taniya stated that patient was doing okay. She will call Dr Ravi today for patient's follow up appointment and will ask to do the blood work at the same time. They have no questions or other concerns at this time. No further calls will be made.
== END 2017-03-28 13:00 | disposition home or self-care (01) | DRG 641 ==
LOC: SED 17:34 → STU 19:31
PROVIDERS: ADMIT Internal Medicine; ATTEND Internal Medicine
DX: E87.1 Hypo-osmolality and hyponatremia (principal); K56.7 Ileus, unspecified; F17.210 Nicotine dependence, cigarettes, uncomplicated; I10 Essential (primary) hypertension; M17.9 Osteoarthritis of knee, unspecified; Z96.659 Presence of unspecified artificial knee joint; K59.09 Other constipation; J44.9 Chronic obstructive pulmonary disease, unspecified; T50.2X5A Adverse effect of carbonic-anhydrase inhibitors, benzothiadiazides and other diuretics, initial encounter; Y92.89 Other specified places as the place of occurrence of the external cause; Z85.46 Personal history of malignant neoplasm of prostate; Z79.899 Other long term (current) drug therapy; Z88.6 Allergy status to analgesic agent
CPT/HCPCS: 36415; 71010; 71250-TC; 80048; 80053; 81003; 83605; 83690-TC; 83735-TC; 83930-TC; 83935-TC; 84443-TC; 85025; 85610-TC; 87040-TC; 87081; 93005; 97116-GP; 97530-GP; J1650; J3475; J3490; J7030; J7040; J7060

== ENCOUNTER 2017-04-05 18:54 | Inpatient (IN) | payer OTHER ==
[~2017-04-05] VITALS: Ht 160 cm; Wt 59.9 kg
[~2017-04-05 18:54] MED LIST changes: -HYDR12.55 PO
[2017-04-05 19:00] VITALS: BP_SYST 103
[2017-04-05] MEDS ORDERED: NA PHOS,M-B/NA PHOS,DI-BA 118 ML (FLEET ENEMA) RC ONE (19:15)
[2017-04-05] MEDS ORDERED: MAGNESIUM CITRATE 300 ML ORAL SOLUTION PO ONE (19:15)
[2017-04-05 19:34] LABS: BASOPHILS % (AUTO) 0.3 % (0.0-2.0); EOSINOPHILS # (AUTO) 0.2 K/uL (0.0-0.4); EOSINOPHILS % (AUTO) 2.3 % (0.0-4.0); HEMATOCRIT 34.4 % (36-54); HEMOGLOBIN 11.8 g/dL (14.0-18.0); LYMPHOCYTES # (AUTO) 1.2 K/uL (1.0-5.5); LYMPHOCYTES % (AUTO) 16.6 % (20.5-51.5); MEAN CORPUSCULAR HEMOGLOBIN 36 pg (27-31); MEAN CORPUSCULAR HGB CONC 34 % (32-36); MEAN CORPUSCULAR VOLUME 105 fL (79.0-98.0); MONOCYTES # (AUTO) 0.7 K/uL (0.0-1.0); MONOCYTES % (AUTO) 9.8 % (1.7-9.3); NEUTROPHILS # (AUTO) 5.1 K/uL (1.8-7.7); PLATELET COUNT (AUTO) 291 K/uL (130-430); RED BLOOD CELL COUNT(AUTO) 3.27 MIL/uL (4.2-6.2); RED CELL DISTRIBUTION WIDTH 12.3 % (9.0-15.0); WHITE BLOOD COUNT (AUTO) 7.3 K/uL (4.8-10.8)
[2017-04-05 20:09] LABS: ANION GAP 5 (5-15); CALCIUM 9.4 mg/dL (8.4-11.0); CHLORIDE 88 mmol/L (98-107); CREATININE 0.94 mg/dL (0.55-1.30); GLUCOSE 102 mg/dL (70-99); POTASSIUM 4.5 mmol/L (3.5-5.1); UREA NITROGEN, BLOOD 12 mg/dL (8-21)
[2017-04-05 20:14] LABS: ALANINE AMINOTRANSFERASE 18 U/L (12-78); ALBUMIN 3.8 g/dL (3.4-4.8); AMYLASE 60 U/L (0-100); ASPARTATE AMINOTRANSFERASE 19 U/L (10-37); LIPASE 204 U/L (73-393); TOTAL BILIRUBIN 0.4 mg/dL (0.0-1.0); TOTAL PROTEIN, SERUM 7.6 g/dL (6.4-8.3)
[2017-04-05 20:21] LABS: SODIUM SERUM 119 mmol/L (136-145)
[2017-04-05] MEDS ORDERED: NACL 0.9% 1,000 ML IV ONE (21:10)
[2017-04-05] MEDS ORDERED: NACL 0.9% 1,000 ML IV SCH (21:10)
[2017-04-05] MEDS ORDERED: ACETAMINOPHEN 325 MG TABLET PO PRN (21:15)
[2017-04-05 21:58] VITALS: BP_SYST 128
[2017-04-05 22:32] LABS: ANION GAP 4 (5-15); CALCIUM 9.1 mg/dL (8.4-11.0); CHLORIDE 89 mmol/L (98-107); CREATININE 0.85 mg/dL (0.55-1.30); GLUCOSE 92 mg/dL (70-99); UREA NITROGEN, BLOOD 12 mg/dL (8-21)
[2017-04-05 22:42] LABS: SODIUM SERUM 119 mmol/L (136-145)
[2017-04-05] MEDS: FOLIC ACID 1 MG TABLET PO SCH (23:17)
[2017-04-05] MEDS: MULTIVITAMINS TAB 1 TABLET PO SCH (23:17)
[2017-04-05] MEDS: THIAMINE HCL 100 MG TABLET PO SCH (23:19)
[2017-04-05] MEDS ORDERED: THIAMINE HCL 100 MG TABLET ONE (23:22)
[2017-04-05] MEDS ORDERED: FOLIC ACID 1 MG TABLET ONE (23:22)
[2017-04-06] VITALS (7 sets, daily range): BP systolic 109–135
[2017-04-06 01:20] LABS: BILIRUBIN,URINE NEGATIVE (NEGATIVE); BLOOD, URINE NEGATIVE (NEGATIVE); CLARITY/URINE CLEAR (CLEAR); COLOR,URINE YELLOW (YELLOW); GLUCOSE,URINE NEGATIVE (NEGATIVE); KETONES,URINE NEGATIVE (NEGATIVE); LEUKOCYTE ESTERASE ,URINE NEGATIVE (NEGATIVE); NITRITE, URINE NEGATIVE (NEGATIVE); PROTEIN URINE NEGATIVE (NEGATIVE); UROBILINOGEN,URINE 0.2 (0.2-1.0)
[2017-04-06 02:18] LABS: ANION GAP 3 (5-15); CALCIUM 8.9 mg/dL (8.4-11.0); CHLORIDE 90 mmol/L (98-107); CREATININE 0.72 mg/dL (0.55-1.30); GLUCOSE 98 mg/dL (70-99); POTASSIUM 3.8 mmol/L (3.5-5.1); UREA NITROGEN, BLOOD 10 mg/dL (8-21)
[2017-04-06 02:20] LABS: SODIUM SERUM 119 mmol/L (136-145)
[2017-04-06 06:31] LABS: BASOPHILS % (AUTO) 0.3 % (0.0-2.0); EOSINOPHILS # (AUTO) 0.2 K/uL (0.0-0.4); EOSINOPHILS % (AUTO) 3.5 % (0.0-4.0); HEMATOCRIT 33.6 % (36-54); HEMOGLOBIN 11.6 g/dL (14.0-18.0); LYMPHOCYTES # (AUTO) 1.2 K/uL (1.0-5.5); LYMPHOCYTES % (AUTO) 19.1 % (20.5-51.5); MEAN CORPUSCULAR HEMOGLOBIN 36 pg (27-31); MEAN CORPUSCULAR HGB CONC 35 % (32-36); MEAN CORPUSCULAR VOLUME 104 fL (79.0-98.0); MONOCYTES % (AUTO) 15.3 % (1.7-9.3); NEUTROPHILS % (AUTO) 61.8 % (40.0-70.0); PLATELET COUNT (AUTO) 267 K/uL (130-430); RED BLOOD CELL COUNT(AUTO) 3.22 MIL/uL (4.2-6.2); RED CELL DISTRIBUTION WIDTH 12.6 % (9.0-15.0); WHITE BLOOD COUNT (AUTO) 6.4 K/uL (4.8-10.8)
[2017-04-06 06:36] LABS: ANION GAP 3 (5-15); CHLORIDE 93 mmol/L (98-107); CREATININE 0.72 mg/dL (0.55-1.30); GLUCOSE 99 mg/dL (70-99); POTASSIUM 4.7 mmol/L (3.5-5.1); SODIUM SERUM 122 mmol/L (136-145); UREA NITROGEN, BLOOD 8 mg/dL (8-21)
[2017-04-06] MEDS: FOLIC ACID 1 MG TABLET PO SCH (08:26)
[2017-04-06] MEDS: THIAMINE HCL 100 MG TABLET PO SCH (08:26)
[2017-04-06] MEDS: LOSARTAN POTASSIUM 50 MG TABLET (COZAAR) PO SCH (08:26)
[2017-04-06] MEDS: MULTIVITAMINS TAB 1 TABLET PO SCH (08:26)
[2017-04-06] MEDS: ENOXAPARIN SODIUM 40 MG/0.4 ML SYRINGE SUBCUT SCH (08:27)
[2017-04-06 10:18] LABS: ANION GAP 3 (5-15); CALCIUM 8.8 mg/dL (8.4-11.0); CHLORIDE 92 mmol/L (98-107); CREATININE 0.79 mg/dL (0.55-1.30); GLUCOSE 98 mg/dL (70-99); SODIUM SERUM 123 mmol/L (136-145); UREA NITROGEN, BLOOD 7 mg/dL (8-21)
[2017-04-06] MEDS: SODIUM CHLORIDE 3% *HI-ALERT* 500 ML IV SCH (13:22)
[2017-04-06 14:47] LABS: ANION GAP 2 (5-15); CALCIUM 8.6 mg/dL (8.4-11.0); CHLORIDE 91 mmol/L (98-107); CREATININE 0.75 mg/dL (0.55-1.30); GLUCOSE 140 mg/dL (70-99); POTASSIUM 3.9 mmol/L (3.5-5.1); SODIUM SERUM 120 mmol/L (136-145); UREA NITROGEN, BLOOD 7 mg/dL (8-21)
[2017-04-06 14:51] LABS: PHOSPHORUS 3.3 mg/dL (2.7-4.5)
[2017-04-06 18:56] LABS: ANION GAP 4 (5-15); CALCIUM 8.6 mg/dL (8.4-11.0); CHLORIDE 93 mmol/L (98-107); CREATININE 0.74 mg/dL (0.55-1.30); GLUCOSE 124 mg/dL (70-99); SODIUM SERUM 122 mmol/L (136-145); UREA NITROGEN, BLOOD 8 mg/dL (8-21)
[2017-04-06 22:32] LABS: CALCIUM 8.5 mg/dL (8.4-11.0); CHLORIDE 94 mmol/L (98-107); CREATININE 0.78 mg/dL (0.55-1.30); GLUCOSE 97 mg/dL (70-99); POTASSIUM 4.3 mmol/L (3.5-5.1); SODIUM SERUM 123 mmol/L (136-145); UREA NITROGEN, BLOOD 9 mg/dL (8-21)
[2017-04-06 22:33] LABS: ANION GAP < 3 (5-15)
[2017-04-07 00:17] VITALS: BP_SYST 118
[2017-04-07] MEDS ORDERED: MAGNESIUM SULFATE 50 ML IV ONE (02:15)
[2017-04-07 02:54] LABS: ANION GAP 0 (5-15); CALCIUM 8.3 mg/dL (8.4-11.0); CHLORIDE 96 mmol/L (98-107); CREATININE 0.81 mg/dL (0.55-1.30); GLUCOSE 132 mg/dL (70-99); POTASSIUM 3.9 mmol/L (3.5-5.1); SODIUM SERUM 122 mmol/L (136-145); UREA NITROGEN, BLOOD 8 mg/dL (8-21)
[2017-04-07 04:00] VITALS: BP_SYST 108
[2017-04-07] MEDS: SODIUM CHLORIDE 3% *HI-ALERT* 500 ML IV SCH (06:47)
[2017-04-07 06:50] LABS: BASOPHILS % (AUTO) 0.1 % (0.0-2.0); EOSINOPHILS # (AUTO) 0.1 K/uL (0.0-0.4); EOSINOPHILS % (AUTO) 2.6 % (0.0-4.0); HEMATOCRIT 31.7 % (36-54); HEMOGLOBIN 10.8 g/dL (14.0-18.0); LYMPHOCYTES # (AUTO) 1.3 K/uL (1.0-5.5); LYMPHOCYTES % (AUTO) 22.1 % (20.5-51.5); MEAN CORPUSCULAR HEMOGLOBIN 36 pg (27-31); MEAN CORPUSCULAR HGB CONC 34 % (32-36); MEAN CORPUSCULAR VOLUME 105 fL (79.0-98.0); MONOCYTES # (AUTO) 0.6 K/uL (0.0-1.0); MONOCYTES % (AUTO) 10.1 % (1.7-9.3); NEUTROPHILS # (AUTO) 3.7 K/uL (1.8-7.7); NEUTROPHILS % (AUTO) 65.1 % (40.0-70.0); PLATELET COUNT (AUTO) 263 K/uL (130-430); RED BLOOD CELL COUNT(AUTO) 3.04 MIL/uL (4.2-6.2); RED CELL DISTRIBUTION WIDTH 12.4 % (9.0-15.0); WHITE BLOOD COUNT (AUTO) 5.7 K/uL (4.8-10.8)
[2017-04-07 07:19] LABS: CALCIUM 8.8 mg/dL (8.4-11.0); CHLORIDE 96 mmol/L (98-107); GLUCOSE 91 mg/dL (70-99); SODIUM SERUM 123 mmol/L (136-145)
[2017-04-07 07:20] LABS: CREATININE 0.69 mg/dL (0.55-1.30); UREA NITROGEN, BLOOD 7 mg/dL (8-21)
[2017-04-07 07:40] LABS: ANION GAP < 3 (5-15)
[2017-04-07 08:00] VITALS: BP_SYST 107
[2017-04-07] MEDS: FOLIC ACID 1 MG TABLET PO SCH (08:51)
[2017-04-07] MEDS: MULTIVITAMINS TAB 1 TABLET PO SCH (08:51)
[2017-04-07] MEDS: THIAMINE HCL 100 MG TABLET PO SCH (08:51)
[2017-04-07] MEDS: LOSARTAN POTASSIUM 50 MG TABLET (COZAAR) PO SCH (08:52)
[2017-04-07] MEDS: ENOXAPARIN SODIUM 40 MG/0.4 ML SYRINGE SUBCUT SCH (08:52)
[2017-04-07] MEDS ORDERED: FUROSEMIDE 20 MG/2 ML VIAL IVP ONE (11:45)
[2017-04-07 12:08] VITALS: BP_SYST 135
[2017-04-07 17:01] VITALS: BP_SYST 115
[2017-04-07 19:29] VITALS: BP_SYST 107
[2017-04-07 23:02] LABS: ANION GAP 6 (5-15); CALCIUM 8.8 mg/dL (8.4-11.0); CHLORIDE 99 mmol/L (98-107); CREATININE 0.76 mg/dL (0.55-1.30); GLUCOSE 95 mg/dL (70-99); POTASSIUM 4.1 mmol/L (3.5-5.1); SODIUM SERUM 130 mmol/L (136-145); UREA NITROGEN, BLOOD 10 mg/dL (8-21)
[2017-04-08] MEDS: SODIUM CHLORIDE 3% *HI-ALERT* 500 ML IV SCH (00:41)
[2017-04-08 00:47] VITALS: BP_SYST 120
[2017-04-08 04:01] VITALS: BP_SYST 123
[2017-04-08 06:54] LABS: BASOPHILS % (AUTO) 0.4 % (0.0-2.0); EOSINOPHILS # (AUTO) 0.2 K/uL (0.0-0.4); EOSINOPHILS % (AUTO) 2.7 % (0.0-4.0); HEMATOCRIT 32.4 % (36-54); HEMOGLOBIN 10.9 g/dL (14.0-18.0); LYMPHOCYTES # (AUTO) 1.5 K/uL (1.0-5.5); LYMPHOCYTES % (AUTO) 25.3 % (20.5-51.5); MEAN CORPUSCULAR HEMOGLOBIN 36 pg (27-31); MEAN CORPUSCULAR HGB CONC 34 % (32-36); MEAN CORPUSCULAR VOLUME 106 fL (79.0-98.0); MONOCYTES # (AUTO) 0.7 K/uL (0.0-1.0); MONOCYTES % (AUTO) 11.9 % (1.7-9.3); NEUTROPHILS # (AUTO) 3.4 K/uL (1.8-7.7); NEUTROPHILS % (AUTO) 59.7 % (40.0-70.0); PLATELET COUNT (AUTO) 309 K/uL (130-430); RED BLOOD CELL COUNT(AUTO) 3.06 MIL/uL (4.2-6.2); RED CELL DISTRIBUTION WIDTH 12.8 % (9.0-15.0); WHITE BLOOD COUNT (AUTO) 5.8 K/uL (4.8-10.8)
[2017-04-08 07:31] LABS: ANION GAP 9 (5-15); CALCIUM 8.8 mg/dL (8.4-11.0); CHLORIDE 100 mmol/L (98-107); CREATININE 0.78 mg/dL (0.55-1.30); GLUCOSE 114 mg/dL (70-99); POTASSIUM 4.1 mmol/L (3.5-5.1); SODIUM SERUM 133 mmol/L (136-145); UREA NITROGEN, BLOOD 7 mg/dL (8-21)
[2017-04-08 07:57] VITALS: BP_SYST 138
[2017-04-08] MEDS: LOSARTAN POTASSIUM 50 MG TABLET (COZAAR) PO SCH (09:14)
[2017-04-08] MEDS: FOLIC ACID 1 MG TABLET PO SCH (09:14)
[2017-04-08] MEDS: MULTIVITAMINS TAB 1 TABLET PO SCH (09:15)
[2017-04-08] MEDS: THIAMINE HCL 100 MG TABLET PO SCH (09:15)
[2017-04-08] MEDS: ENOXAPARIN SODIUM 40 MG/0.4 ML SYRINGE SUBCUT SCH (09:21)
[2017-04-08 10:31] VITALS: BP_SYST 138
== END 2017-04-08 10:55 | disposition home or self-care (01) | DRG 641 ==
LOC: SED 18:54 → STU 21:10
PROVIDERS: ADMIT Internal Medicine; ATTEND Internal Medicine
DX: E87.1 Hypo-osmolality and hyponatremia (principal); I10 Essential (primary) hypertension; J44.9 Chronic obstructive pulmonary disease, unspecified; D63.8 Anemia in other chronic diseases classified elsewhere; Z96.659 Presence of unspecified artificial knee joint; I70.0 Atherosclerosis of aorta; K59.00 Constipation, unspecified; F22 Delusional disorders; E87.8 Other disorders of electrolyte and fluid balance, not elsewhere classified; F17.210 Nicotine dependence, cigarettes, uncomplicated; F10.20 Alcohol dependence, uncomplicated; Z90.79 Acquired absence of other genital organ(s); Z79.899 Other long term (current) drug therapy; Z88.6 Allergy status to analgesic agent; Z85.46 Personal history of malignant neoplasm of prostate
CPT/HCPCS: 36415; 74000-TC; 74250-TC; 80048; 80053; 81003; 82150-TC; 83690-TC; 83735-TC; 84100-TC; 85025; 87081; 93005; 99285; J1650; J1940; J3475; J3490; J7030

== ENCOUNTER 2018-09-04 17:40 | Inpatient (IN) | payer OTHER ==
[~2018-09-04] VITALS: Ht 157.5 cm; Wt 60.1 kg
[2018-09-04 17:40] VITALS: BP_SYST 166
[~2018-09-04 17:40] MED LIST changes: -LOSA100T11 PO; +LOSA100T3 PO
[2018-09-04] MEDS ORDERED: ONDANSETRON HCL 4 MG/2 ML VIAL IVP ONE (18:15)
[2018-09-04] MEDS ORDERED: MORPHINE 4 MG/ML INJ. SYRINGE IVP ONE ×2 (18:15→21:45)
[2018-09-04] MEDS ORDERED: NS 500 ML IV ONE (18:15)
[2018-09-04 19:14] LABS: BASOPHILS % (AUTO) 0.2 % (0.0-2.0); EOSINOPHILS # (AUTO) 0.1 K/uL (0.0-0.4); HEMATOCRIT 37.9 % (36-54); HEMOGLOBIN 12.5 g/dL (14.0-18.0); LYMPHOCYTES # (AUTO) 1.6 K/uL (1.0-5.5); LYMPHOCYTES % (AUTO) 23.4 % (20.5-51.5); MEAN CORPUSCULAR HEMOGLOBIN 33 pg (27-31); MEAN CORPUSCULAR HGB CONC 33 % (32-36); MEAN CORPUSCULAR VOLUME 99 fL (79.0-98.0); MONOCYTES # (AUTO) 0.7 K/uL (0.0-1.0); NEUTROPHILS # (AUTO) 4.3 K/uL (1.8-7.7); NEUTROPHILS % (AUTO) 64.4 % (40.0-70.0); PLATELET COUNT (AUTO) 261 K/uL (130-430); RED BLOOD CELL COUNT(AUTO) 3.83 MIL/uL (4.2-6.2); RED CELL DISTRIBUTION WIDTH 13.9 % (9.0-15.0); WHITE BLOOD COUNT (AUTO) 6.7 K/uL (4.8-10.8)
[2018-09-04 19:28] LABS: BILIRUBIN,URINE NEGATIVE (NEGATIVE); BLOOD, URINE 1+ (NEGATIVE); CLARITY/URINE CLEAR (CLEAR); COLOR,URINE YELLOW (YELLOW); GLUCOSE,URINE NEGATIVE (NEGATIVE); KETONES,URINE NEGATIVE (NEGATIVE); LEUKOCYTE ESTERASE ,URINE NEGATIVE (NEGATIVE); NITRITE, URINE NEGATIVE (NEGATIVE); PROTEIN URINE NEGATIVE (NEGATIVE); UROBILINOGEN,URINE 0.2 (0.2-1.0)
[2018-09-04 19:30] LABS: ANION GAP 4 (5-15); CALCIUM 9.3 mg/dL (8.4-11.0); CHLORIDE 99 mmol/L (98-107); CREATININE 0.83 mg/dL (0.55-1.30); GLUCOSE 90 mg/dL (70-99); POTASSIUM 3.8 mmol/L (3.5-5.1); SODIUM SERUM 132 mmol/L (136-145); UREA NITROGEN, BLOOD 10 mg/dL (8-21)
[2018-09-04 19:33] LABS: ALANINE AMINOTRANSFERASE 17 U/L (12-78); ALBUMIN 3.4 g/dL (3.4-4.8); ASPARTATE AMINOTRANSFERASE 10 U/L (10-37); LIPASE 169 U/L (73-393); TOTAL BILIRUBIN 0.3 mg/dL (0.0-1.0)
[2018-09-04 19:41] LABS: BACTERIA,URINE FEW /HPF (None Seen)
[2018-09-04 19:42] LABS: MUCUS,URINE 1+ /LPF (None Seen)
[2018-09-04] MEDS ORDERED: cefTRIAXone 0.75 GM in D5W 50 ML IV ONE (19:45)
[2018-09-04] MEDS ORDERED: AZITHROMYCIN 500 MG in NS 250 ML IV ONE (19:45)
[2018-09-04] MEDS ORDERED: FLOR.1 PO (20:01)
[2018-09-04] MEDS ORDERED: sodium chloride PO (20:01)
[2018-09-04] MEDS ORDERED: AZITHROMYCIN 500 MG/VIAL (ZITHROMAX) IV ONE (20:13)
[2018-09-04] MEDS ORDERED: cefTRIAXone 1 GM VIAL ONE (20:13)
[2018-09-04] MEDS ORDERED: INSULIN REGULAR, HUMAN 100 UNITS/ML, 10 ML VIAL (novoLIN R) SUBCUT PRN (21:45)
[2018-09-04] MEDS ORDERED: DIPHENHYDRAMINE INJ 50 MG/ML VIAL IVP ONE (21:45)
[2018-09-04 22:40] VITALS: BP_SYST 123
[2018-09-04] MEDS: NACL 0.9% 1,000 ML IV SCH (23:50)
[2018-09-05 00:10] VITALS: BP_SYST 146
[2018-09-05] MEDS ORDERED: ACETAMINOPHEN 650 MG/20.3 ML UDC PO PRN (00:15)
[2018-09-05] MEDS ORDERED: ONDANSETRON HCL 4 MG/2 ML VIAL IVP PRN (00:15)
[2018-09-05] MEDS ORDERED: MORPHINE 2 MG/ML INJ. SYRINGE IVP PRN (00:15)
[2018-09-05] MEDS ORDERED: MINERAL OIL 30 ML UDC PO SCH ×2 (00:30→06:00)
[2018-09-05 08:55] VITALS: BP_SYST 148
[2018-09-05] MEDS ORDERED: MAGNESIUM CITRATE 300 ML ORAL SOLUTION PO ONE (09:15)
[2018-09-05] MEDS ORDERED: NA PHOS,M-B/NA PHOS,DI-BA 118 ML (FLEET ENEMA) RC ONE (09:15)
[2018-09-05] MEDS: MINERAL OIL 30 ML UDC PO SCH ×2 (11:53→18:36)
[2018-09-05 12:00] VITALS: BP_SYST 131
[2018-09-05 16:00] VITALS: BP_SYST 135
[2018-09-05] MEDS: NACL 0.9% 1,000 ML IV SCH (18:35)
[2018-09-05 20:10] VITALS: BP_SYST 132
[2018-09-05] MEDS ORDERED: cefTRIAXone 1 GM in D5W 50 ML IV SCH (21:00)
[2018-09-05] MEDS ORDERED: AZITHROMYCIN 500 MG in NS 250 ML IV SCH (21:00)
[2018-09-06] MEDS: MINERAL OIL 30 ML UDC PO SCH ×2 (00:08→06:07)
[2018-09-06 00:53] VITALS: BP_SYST 123
[2018-09-06 08:36] VITALS: BP_SYST 137
[2018-09-06 10:25] VITALS: BP_SYST 137
== END 2018-09-06 11:35 | disposition home or self-care (01) | DRG 389 ==
LOC: SED 17:40 → STU 21:43
PROVIDERS: ADMIT Internal Medicine; ATTEND Internal Medicine Hospice and Palliative Medicine
DX: K56.41 Fecal impaction (principal); E87.1 Hypo-osmolality and hyponatremia; I10 Essential (primary) hypertension; Z96.659 Presence of unspecified artificial knee joint; J44.9 Chronic obstructive pulmonary disease, unspecified; I71.4 Abdominal aortic aneurysm, without rupture; Z85.46 Personal history of malignant neoplasm of prostate; Z87.891 Personal history of nicotine dependence; Z90.79 Acquired absence of other genital organ(s); Z88.5 Allergy status to narcotic agent; Z79.899 Other long term (current) drug therapy
CPT/HCPCS: 36415; 71045; 80053; 81000-TC; 83605; 83690-TC; 84484; 85025; 87040-TC; 93005; 96365; 96367; 96375; 96376; 99285; J0456; J0696; J1200; J2270; J2405; J7030; J7050; J7060

== ENCOUNTER 2018-09-08 11:12 | Emergency (ER) | payer OTHER ==
[~2018-09-08] VITALS: Ht 157.5 cm; Wt 61.2 kg
[~2018-09-08 11:12] MED LIST changes: +FLOR.1 PO; +sodium chloride PO
[2018-09-08 11:22] VITALS: BP_SYST 137
--- NOTE | 2018-09-08 11:26 | NUR ---
Patient to ER bed 8 to gown for evaluation. Side rails up. Report given to Rip LEAL.
--- NOTE | 2018-09-08 11:28 | NUR ---
Pt presents to ED with LUQ abd pain 06/04. Pt was here last week and reports that the pain is back, but worse. Pt reports having constipation. NAD
--- NOTE | 2018-09-08 11:31 | NUR ---
ER at bedside examining patient.
[2018-09-08] MEDS ORDERED: NACL 0.9% 1,000 ML IV ONE (11:45)
[2018-09-08] MEDS ORDERED: MORPHINE 4 MG/ML INJ. SYRINGE IVP ONE (11:45)
[2018-09-08 12:16] LABS: BASOPHILS # (AUTO) 0.1 K/uL (0.0-0.2); EOSINOPHILS # (AUTO) 0.1 K/uL (0.0-0.4); EOSINOPHILS % (AUTO) 0.8 % (0.0-4.0); HEMATOCRIT 39.8 % (36-54); HEMOGLOBIN 13.2 g/dL (14.0-18.0); MEAN CORPUSCULAR HEMOGLOBIN 32 pg (27-31); MEAN CORPUSCULAR HGB CONC 33 % (32-36); MEAN CORPUSCULAR VOLUME 98 fL (79.0-98.0); MONOCYTES # (AUTO) 0.5 K/uL (0.0-1.0); MONOCYTES % (AUTO) 6.1 % (1.7-9.3); NEUTROPHILS # (AUTO) 5.7 K/uL (1.8-7.7); NEUTROPHILS % (AUTO) 78.1 % (40.0-70.0); PLATELET COUNT (AUTO) 267 K/uL (130-430); RED BLOOD CELL COUNT(AUTO) 4.07 MIL/uL (4.2-6.2); WHITE BLOOD COUNT (AUTO) 7.4 K/uL (4.8-10.8)
[2018-09-08 12:20] LABS: ANION GAP 9 (5-15); CALCIUM 9.3 mg/dL (8.4-11.0); CHLORIDE 101 mmol/L (98-107); CREATININE 0.94 mg/dL (0.55-1.30); GLUCOSE 114 mg/dL (70-99); POTASSIUM 3.7 mmol/L (3.5-5.1); SODIUM SERUM 137 mmol/L (136-145); UREA NITROGEN, BLOOD 7 mg/dL (8-21)
[2018-09-08 12:26] LABS: ALANINE AMINOTRANSFERASE 15 U/L (12-78); ALBUMIN 3.2 g/dL (3.4-4.8); ASPARTATE AMINOTRANSFERASE 15 U/L (10-37); TOTAL BILIRUBIN 0.6 mg/dL (0.0-1.0)
[2018-09-08 13:26] LABS: BILIRUBIN,URINE NEGATIVE (NEGATIVE); BLOOD, URINE 1+ (NEGATIVE); CLARITY/URINE CLEAR (CLEAR); COLOR,URINE YELLOW (YELLOW); GLUCOSE,URINE NEGATIVE (NEGATIVE); KETONES,URINE NEGATIVE (NEGATIVE); LEUKOCYTE ESTERASE ,URINE 1+ (NEGATIVE); NITRITE, URINE NEGATIVE (NEGATIVE); PH,URINE 5.5 (5.0-8.0); PROTEIN URINE NEGATIVE (NEGATIVE); UROBILINOGEN,URINE 0.2 (0.2-1.0)
[2018-09-08] MEDS ORDERED: KETOROLAC TROMETHAMINE 30 MG VIAL IVP ONE (13:45)
[2018-09-08 13:50] LABS: BACTERIA,URINE FEW /HPF (None Seen); MUCUS,URINE None Seen /LPF (None Seen); YEAST,URINE None Seen /HPF (None Seen)
--- NOTE | 2018-09-08 17:12 | NUR ---
Patient given written and verbal discharge instructions and verbalizes understanding. ER MD discussed with patient the results and treatment provided. Patient in stable condition. ID arm band removed. IV catheter removed intact and dressing applied, no active bleeding. Rx of Michie 5/325 given. Patient educated on pain management and to follow up with PMD. Pain Scale 2/10. Opportunity for questions provided and answered. Medication side effect fact sheet provided.
[2018-09-08 17:15] VITALS: BP_SYST 146
== END 2018-09-08 17:12 | disposition home or self-care (01) ==
LOC: SED 11:12
DX: N20.0 Calculus of kidney (principal); I10 Essential (primary) hypertension; Z90.49 Acquired absence of other specified parts of digestive tract; Z96.651 Presence of right artificial knee joint; Z88.5 Allergy status to narcotic agent
CPT/HCPCS: 36415; 71045; 74176; 80053; 81000; 85025; 87086; 96374; 96375; 99285; J1885; J2270; J7030

== ENCOUNTER 2018-09-20 18:20 | Emergency (ER) | payer OTHER ==
[~2018-09-20] VITALS: Ht 157.5 cm; Wt 59.0 kg
[2018-09-20 18:34] VITALS: BP_SYST 161
[2018-09-20 19:09] LABS: BILIRUBIN,URINE NEGATIVE (NEGATIVE); BLOOD, URINE NEGATIVE (NEGATIVE); CLARITY/URINE CLEAR (CLEAR); COLOR,URINE YELLOW (YELLOW); GLUCOSE,URINE NEGATIVE (NEGATIVE); KETONES,URINE NEGATIVE (NEGATIVE); LEUKOCYTE ESTERASE ,URINE NEGATIVE (NEGATIVE); NITRITE, URINE NEGATIVE (NEGATIVE); PH,URINE 6.5 (5.0-8.0); PROTEIN URINE TRACE (NEGATIVE); UROBILINOGEN,URINE 0.2 (0.2-1.0)
[2018-09-20] MEDS ORDERED: NACL 0.9% 1,000 ML IV ONE (19:16)
[2018-09-20 19:17] LABS: BACTERIA,URINE FEW /HPF (None Seen); MUCUS,URINE None Seen /LPF (None Seen); RBC,URINE NONE SEEN /HPF (0-3); WBC,URINE 0-3 /HPF (0-3)
[2018-09-20] MEDS: ONDANSETRON HCL 4 MG/2 ML VIAL IVP ONE ×2 (19:27→19:30)
[2018-09-20] MEDS ORDERED: KETOROLAC TROMETHAMINE 30 MG VIAL IVP ONE (19:30)
[2018-09-20 19:49] LABS: BASOPHILS % (AUTO) 0.5 % (0.0-2.0); EOSINOPHILS # (AUTO) 0.1 K/uL (0.0-0.4); EOSINOPHILS % (AUTO) 1.2 % (0.0-4.0); HEMATOCRIT 37.8 % (36-54); HEMOGLOBIN 12.5 g/dL (14.0-18.0); LYMPHOCYTES # (AUTO) 1.9 K/uL (1.0-5.5); MEAN CORPUSCULAR HEMOGLOBIN 33 pg (27-31); MEAN CORPUSCULAR HGB CONC 33 % (32-36); MEAN CORPUSCULAR VOLUME 99 fL (79.0-98.0); MONOCYTES # (AUTO) 0.6 K/uL (0.0-1.0); MONOCYTES % (AUTO) 8.4 % (1.7-9.3); NEUTROPHILS # (AUTO) 4.2 K/uL (1.8-7.7); NEUTROPHILS % (AUTO) 61.9 % (40.0-70.0); PLATELET COUNT (AUTO) 319 K/uL (130-430); RED BLOOD CELL COUNT(AUTO) 3.83 MIL/uL (4.2-6.2); RED CELL DISTRIBUTION WIDTH 13.8 % (9.0-15.0); WHITE BLOOD COUNT (AUTO) 6.8 K/uL (4.8-10.8)
[2018-09-20 19:56] LABS: ANION GAP 7 (5-15); CALCIUM 9.2 mg/dL (8.4-11.0); CHLORIDE 99 mmol/L (98-107); CREATININE 0.82 mg/dL (0.55-1.30); GLUCOSE 88 mg/dL (70-99); POTASSIUM 3.6 mmol/L (3.5-5.1); SODIUM SERUM 133 mmol/L (136-145); UREA NITROGEN, BLOOD 9 mg/dL (8-21)
[2018-09-20 20:00] LABS: ALANINE AMINOTRANSFERASE 19 U/L (12-78); ALBUMIN 3.3 g/dL (3.4-4.8); ASPARTATE AMINOTRANSFERASE 15 U/L (10-37); LIPASE 201 U/L (73-393); TOTAL BILIRUBIN 0.4 mg/dL (0.0-1.0)
[2018-09-20 21:55] VITALS: BP_SYST 144
== END 2018-09-20 21:55 | disposition home or self-care (01) ==
LOC: SED 18:20
DX: M54.9 Dorsalgia, unspecified (principal); R10.32 Left lower quadrant pain; R07.81 Pleurodynia; I10 Essential (primary) hypertension; Z98.890 Other specified postprocedural states; Z88.5 Allergy status to narcotic agent; Z87.442 Personal history of urinary calculi
CPT/HCPCS: 36415; 74176; 80053; 81000; 83690; 85025; 87086; 96374; 99285; J1885; J2405; J7030; 96361

== ENCOUNTER 2018-09-23 19:05 | Emergency (ER) | payer OTHER ==
[~2018-09-23] VITALS: Ht 162.6 cm; Wt 59.0 kg
[2018-09-23 19:25] VITALS: BP_SYST 137
[2018-09-23] MEDS ORDERED: DEXAMETHASONE SOD PHOSPHATE 10 MG/ML VIAL IM ONE (20:15)
[2018-09-23] MEDS ORDERED: OXYCODONE/ACETAMINOPHEN *10*mg/325 mg TABLET PO ONE (20:15)
[2018-09-23 21:34] VITALS: BP_SYST 132
== END 2018-09-23 21:34 | disposition home or self-care (01) ==
LOC: SED 19:05
DX: M54.6 Pain in thoracic spine (principal); I10 Essential (primary) hypertension; Z98.890 Other specified postprocedural states; Z88.5 Allergy status to narcotic agent
CPT/HCPCS: 72128; 96372; 99284; J1100

== ENCOUNTER 2018-12-22 11:08 | Emergency (ER) | payer OTHER ==
[~2018-12-22] VITALS: Ht 162.6 cm; Wt 61.2 kg
[2018-12-22 11:10] VITALS: BP_SYST 150
[2018-12-22] MEDS ORDERED: MORPHINE 4 MG/ML INJ. SYRINGE IM ONE (12:15)
[2018-12-22 12:37] VITALS: BP_SYST 141
== END 2018-12-22 12:37 | disposition home or self-care (01) ==
LOC: SED 11:08
DX: M54.5 Low back pain (principal); I10 Essential (primary) hypertension; Z88.5 Allergy status to narcotic agent; Z79.899 Other long term (current) drug therapy
CPT/HCPCS: 96372; 99283; J2270

== ENCOUNTER 2018-12-23 17:56 | Emergency (ER) | payer OTHER ==
[~2018-12-23] VITALS: Ht 160 cm; Wt 61.2 kg
[2018-12-23 17:59] VITALS: BP_SYST 146
[2018-12-23] MEDS ORDERED: KETOROLAC TROMETHAMINE 30 MG VIAL IM ONE (19:30)
[2018-12-23 20:10] VITALS: BP_SYST 146
== END 2018-12-23 20:10 | disposition home or self-care (01) ==
LOC: SED 17:56
DX: K59.00 Constipation, unspecified (principal); I10 Essential (primary) hypertension; Z85.46 Personal history of malignant neoplasm of prostate; Z88.5 Allergy status to narcotic agent; Z79.899 Other long term (current) drug therapy
CPT/HCPCS: 74018; 96372; 99283; J1885

== ENCOUNTER 2019-12-10 12:30 | Emergency (ER) | payer OTHER ==
[~2019-12-10] VITALS: Ht 157.5 cm; Wt 65.8 kg
[2019-12-10 13:11] VITALS: BP_SYST 154
--- NOTE | 2019-12-10 13:39 | NUR ---
Placed in room 04 . Placed on day habilitation supervisor, blood pressure machine and pulse oximeter. To gown for exam. Side rails up.
--- NOTE | 2019-12-10 13:50 | NUR ---
Patient presented to ER C/O constipation. Patient A&Ox4, ambulatory to ER, afebrile, skin pink & warm, pain /, denies N/V/D. Patient states he has rectal pain since this morning. Patient states last BM this morning.
--- NOTE | 2019-12-10 14:10 | NUR ---
ER at bedside examining patient.
[2019-12-10 16:35] VITALS: BP_SYST 115
--- NOTE | 2019-12-10 16:35 | NUR ---
Patient given written and verbal discharge instructions and verbalizes understanding. ER MD discussed with patient the results and treatment provided. Patient in stable condition. ID arm band removed. Rx of ANUSOL& COLACE given. Patient educated on pain management and to follow up with PMD. Pain Scale 0/10. Opportunity for questions provided and answered.
== END 2019-12-10 16:53 | disposition home or self-care (01) ==
LOC: SED 12:30
DX: K59.00 Constipation, unspecified (principal); K62.89 Other specified diseases of anus and rectum; Z88.5 Allergy status to narcotic agent
CPT/HCPCS: 99284

== ENCOUNTER 2019-12-24 10:22 | Emergency (ER) | payer OTHER ==
[~2019-12-24] VITALS: Ht 160 cm; Wt 65.8 kg
--- NOTE | 2019-12-24 10:30 | NUR ---
EKG performed at by Cheli. Physician given copy of EKG for review.
[2019-12-24 10:39] VITALS: BP_SYST 164
--- NOTE | 2019-12-24 10:43 | NUR ---
PATIENT PRESENTS TO THE ER WITH HX OF STERNAL CHEST PAIN WITH CONGESTED COUGH FOR 3 DAYS; NO TRAUMA, NO OTHER REMARKABLE S/S; STAT EKG AND PATIENT PLACED ON LIQUID COMPOUNDER WITH SAO2; TO ER #7 AT 1030
--- NOTE | 2019-12-24 10:45 | NUR ---
Patient presented to ER C/O Chest Pain. Patient A&O x4, skin and warm, afebrile, ambulatory to ER, cough present, nasal congestion, denies N/V/D, Pain 06/04. Patient states he has cough & congestion x3 days and no health hx to report, no home medication
--- NOTE | 2019-12-24 10:54 | NUR ---
ER Dr. Omalley at bedside examining patient.
[2019-12-24] MEDS ORDERED: LevALBUTEROL HCL 1.25 MG/0.5 ML *CONC.* VIAL.NEB (XOPENEX CONC.) INH ONE ×2 (11:00→11:15)
--- NOTE | 2019-12-24 13:22 | NUR ---
Patient given written and verbal discharge instructions and verbalizes understanding. ER Dr. Omalley discussed with patient the results and treatment provided. Patient in stable condition. ID arm band removed. Rx of Zithromax Z-CHE and Guaifen DM given. Patient educated on pain management and to follow up with PMD. Pain Scale 0/10. Opportunity for questions provided and answered. Medication side effect fact sheet provided.
[2019-12-24 13:24] VITALS: BP_SYST 134
== END 2019-12-24 13:23 | disposition home or self-care (01) ==
LOC: SED 10:22
DX: J20.8 Acute bronchitis due to other specified organisms (principal); I10 Essential (primary) hypertension; Z88.5 Allergy status to narcotic agent
CPT/HCPCS: 71045; 93005; 94640; 99283; J7612

== ENCOUNTER 2021-08-17 11:26 | Emergency (ER) | payer OTHER ==
[~2021-08-17] VITALS: Ht 160 cm; Wt 59.0 kg
[2021-08-17 11:26] VITALS: BP_SYST 162
[2021-08-17] MEDS ORDERED: NACL 0.9% 1,000 ML IV ONE (12:00)
[2021-08-17 12:48] LABS: BASOPHILS % (AUTO) 0.3 % (0.0-2.0); EOSINOPHILS % (AUTO) 0.1 % (0.0-4.0); HEMATOCRIT 38.1 % (36-54); HEMOGLOBIN 13.1 g/dL (14.0-18.0); LYMPHOCYTES # (AUTO) 0.8 K/uL (1.0-5.5); MEAN CORPUSCULAR HEMOGLOBIN 33 pg (27-31); MEAN CORPUSCULAR HGB CONC 35 % (32-36); MEAN CORPUSCULAR VOLUME 96 fL (79.0-98.0); MONOCYTES # (AUTO) 0.4 K/uL (0.0-1.0); MONOCYTES % (AUTO) 5.8 % (1.7-9.3); NEUTROPHILS # (AUTO) 5.5 K/uL (1.8-7.7); NEUTROPHILS % (AUTO) 81.8 % (40.0-70.0); PLATELET COUNT (AUTO) 228 K/uL (130-430); RED BLOOD CELL COUNT(AUTO) 3.98 MIL/uL (4.2-6.2); RED CELL DISTRIBUTION WIDTH 14.3 % (9.0-15.0); WHITE BLOOD COUNT (AUTO) 6.8 K/uL (4.8-10.8)
[2021-08-17 12:56] LABS: ANION GAP 7 (5-15); CALCIUM 9.4 mg/dL (8.4-11.0); CHLORIDE 102 mmol/L (98-107); CREATININE 0.85 mg/dL (0.55-1.30); GLUCOSE 138 mg/dL (70-99); SODIUM SERUM 138 mmol/L (136-145); UREA NITROGEN, BLOOD 8 mg/dL (8-21)
[2021-08-17 13:02] LABS: ALANINE AMINOTRANSFERASE 16 U/L (12-78); ALBUMIN 3.5 g/dL (3.4-4.8); ASPARTATE AMINOTRANSFERASE 10 U/L (10-37); TOTAL BILIRUBIN 0.4 mg/dL (0.0-1.0)
[2021-08-17] MEDS ORDERED: POTASSIUM CHLORIDE 20 MEQ TAB.PRT.SR PO ONE (14:15)
[2021-08-17] MEDS ORDERED: MAGNESIUM OXIDE 400 MG TABLET PO ONE (14:15)
[2021-08-17 14:59] VITALS: BP_SYST 169
== END 2021-08-17 15:00 | disposition home or self-care (01) ==
LOC: SED 11:26
DX: R55 Syncope and collapse (principal); I10 Essential (primary) hypertension; Z88.5 Allergy status to narcotic agent; Z79.899 Other long term (current) drug therapy
CPT/HCPCS: 36415; 71045; 80053; 84484; 85025; 93005; 96360; 99285; J7030

== ENCOUNTER 2021-09-19 06:34 | Day surgery (SDC) | payer OTHER, SELFPAY ==
[~2021-09-19] VITALS: Ht 162.6 cm; Wt 59.0 kg
[2021-09-19] MEDS ORDERED: fentaNYL CITRATE/PF 100 MCG/2 ML AMP ONE (06:43)
[2021-09-19] MEDS ORDERED: SIMETHICONE 40 MG/0.6 ML ML ONE (06:43)
[2021-09-19] MEDS ORDERED: MIDAZOLAM HCL 5 MG/5 ML VIAL ONE (06:43)
[2021-09-19] MEDS ORDERED: DIPHENHYDRAMINE INJ 50 MG/ML VIAL ONE (08:20)
[2021-09-19 14:49] VITALS: BP_SYST 161
== END 2021-09-19 10:00 | disposition home or self-care (01) ==
LOC: SDS 06:34 → SMU 06:36 → SDS 10:00
PROVIDERS: ATTEND Internal Medicine
DX: K59.00 Constipation, unspecified (principal); K62.1 Rectal polyp; K29.80 Duodenitis without bleeding; K29.50 Unspecified chronic gastritis without bleeding; Z87.891 Personal history of nicotine dependence; Z88.5 Allergy status to narcotic agent; Z80.0 Family history of malignant neoplasm of digestive organs; Z79.899 Other long term (current) drug therapy; Z20.822 Contact with and (suspected) exposure to COVID-19
CPT/HCPCS: 36415; 43239; 45380; 87081; 88305; 88312; 88313; 99152; 99153; G0378; J1200; J2250; J3010; U0003; 45385

== ENCOUNTER 2022-05-12 08:56 | Outpatient (CLI) | payer OTHER | END 2022-05-12 19:05 | disposition home or self-care (01) | LOC: SRD 08:56 | PROVIDERS: ATTEND Nurse Practitioner Family | DX: K59.00 Constipation, unspecified (principal); M47.819 Spondylosis without myelopathy or radiculopathy, site unspecified; I70.90 Unspecified atherosclerosis | CPT/HCPCS: 74270-TC ==

== ENCOUNTER 2023-01-15 09:08 | Emergency (ER) | payer OTHER ==
[~2023-01-15] VITALS: Ht 162.6 cm; Wt 60.8 kg
[2023-01-15 09:10] VITALS: BP_SYST 175
--- NOTE | 2023-01-15 09:10 | NUR ---
Patient triaged and placed in waiting room. VSS and patient appears in no acute distress at this time. Accompanied by FAMILY, awaiting available bed, and MD notified of need for MSE.
--- NOTE | 2023-01-15 10:05 | NUR ---
PT BIB FAMILY FROM HOME C/O RECTAL PAIN, 3 DAYS OF CONSTIPATION AND PRIOR HAD HARD STOOLS. PT IS AMBULATORY, AAOX4, VSS
--- NOTE | 2023-01-15 11:10 | NUR ---
PT PLACED IN RM #5. RAILS UP. VSS
--- NOTE | 2023-01-15 11:32 | NUR ---
MD DR DOTSON AT BEDSIDE
[2023-01-15] MEDS ORDERED: MAGN296S8 PO (12:00)
--- NOTE | 2023-01-15 12:06 | NUR ---
Patient given written and verbal discharge instructions and verbalizes understanding. ER MD discussed with patient the results and treatment provided. Patient in stable condition. Rx of given. Patient educated on pain management and to follow up with PMD. Pain Scale [0]. Opportunity for questions provided and answered. Medication side effect fact sheet provided.
--- NOTE | 2023-01-15 12:07 | NUR ---
PT VERBALIZED UNDERSTANDING OF DC INSTRUCTIONS, ALL QUESTION ANSWERED, AMBULATED WITH STEADY GAIT WITH
== END 2023-01-15 12:06 | disposition home or self-care (01) ==
LOC: SED 09:08
DX: K59.00 Constipation, unspecified (principal); K62.89 Other specified diseases of anus and rectum; I10 Essential (primary) hypertension; Z88.5 Allergy status to narcotic agent; Z79.899 Other long term (current) drug therapy
CPT/HCPCS: 99282